=== PATIENT | male | born 1985 | race Caucasian/White ===

== ENCOUNTER 2019-01-22 09:30 | Emergency (ER) | payer BC, OTHER ==
[~2019-01-22] VITALS: Ht 175.3 cm; Wt 68.0 kg
[2019-01-22 13:22] VITALS: BP 109/58
== END 2019-01-22 14:52 ==
LOC: ED 10:57
DX: J02.8 Acute pharyngitis due to other specified organisms (principal); B97.89 Other viral agents as the cause of diseases classified elsewhere; F10.239 Alcohol dependence with withdrawal, unspecified
CPT/HCPCS: 36415; 70360; 70491; 80053; 85025; 87081; 87880; 93005; 96365; 96375; 99284; J2060; J2930; J3411; J7030; Q9967